=== PATIENT | female | born 1965 | race Caucasian/White ===

== ENCOUNTER 2017-07-26 18:00 | Outpatient (CLI) | payer OTHER | END 2017-07-26 18:01 | disposition home or self-care (01) | LOC: SLEEPLAB 18:00 | PROVIDERS: ATTEND Family Medicine | DX: G47.33 Obstructive sleep apnea (adult) (pediatric) (principal); E11.9 Type 2 diabetes mellitus without complications; F41.9 Anxiety disorder, unspecified; K21.9 Gastro-esophageal reflux disease without esophagitis; E66.9 Obesity, unspecified; I10 Essential (primary) hypertension; R06.83 Snoring; R09.02 Hypoxemia | CPT/HCPCS: 95806 ==

== ENCOUNTER 2017-08-16 07:23 | Emergency (ER) | payer OTHER ==
--- NOTE | 2017-08-16 08:50 | RAD ---
RIGHT ANKLE 3 VIEWS: Date: 08/16/17 HISTORY: Tripped and fell with ankle pain. FINDINGS: There is soft tissue swelling adjacent to the lateral malleolus. Small corticated density adjacent to the tip of the fibula is felt to be on the basis of an older injury, although it was not seen on a 2 011 exam. There appears to be some minimal osteophytic change of the adjacent talus. No joint effusio n is seen. IMPRESSION: Small avulsed bony density from the tip of the fibula. I would favor that this is related to an older injury, although there is soft tissue swelling in this area. POS: [facility]
--- NOTE | 2017-08-16 08:53 | RAD ---
LEFT FOOT 3 VIEWS: Date: 08/16/17 HISTORY: Tripped and fell. Pain on top of left foot. FINDINGS: There are some minimal arthritic changes of the first metatarsophalangeal joint. There is a calcaneal spur at the insertion of the plantar fascia. There are no signs of fracture or dislocation. IMPRESSION: No evidence of fracture. POS: [facility]
== END 2017-08-16 08:52 | disposition home or self-care (01) ==
LOC: ERS 07:23
DX: S93.502A Unspecified sprain of left great toe, initial encounter (principal); M25.471 Effusion, right ankle; E66.9 Obesity, unspecified; K21.9 Gastro-esophageal reflux disease without esophagitis; E78.5 Hyperlipidemia, unspecified; E11.9 Type 2 diabetes mellitus without complications; F32.9 Major depressive disorder, single episode, unspecified; Z87.891 Personal history of nicotine dependence; Z79.82 Long term (current) use of aspirin; Z79.4 Long term (current) use of insulin; Z79.51 Long term (current) use of inhaled steroids; Z79.899 Other long term (current) drug therapy; W17.89XA Other fall from one level to another, initial encounter
CPT/HCPCS: 29515

== ENCOUNTER 2017-09-20 17:03 | Outpatient (CLI) | payer OTHER ==
[2017-09-20 17:49] LABS: #Eosinphils 0.4 thou/uL (0.0-0.7); #Lymphocytes 2.8 thou/uL (1.20-3.40); #Monocytes 0.5 thou/uL (0.11-0.59); #Neutrophils 3.6 thou/uL (1.40-6.50); %Basophils 0.6 % (0.0-1.0); %Eosinophils 5.6 % (0.0-10.0); %Lymphocytes 38.3 % (21.0-51.0); %Neutrophils 48.5 % (42.0-75.0); Hemoglobin 12.2 g/dL (12.0-16.0); Mean Corpuscular HGB CONC 33.5 g/dL (32.0-36.0); Mean Corpuscular Hemoglobin 31.4 pg (27.0-31.0); Mean Corpuscular Volume 93.6 fl (81.0-99.0); Mean Platelet Volume 7.7 fL (7.4-10.4); Platelet Count 260 thou/uL (130-400); RBC Distribution Width 13.8 % (11.5-14.5); White Blood Cell (WBC) Count 7.4 thou/uL (4.8-10.8)
[2017-09-20 18:13] LABS: ALT (SGPT) 17 U/L (8-55); AST (SGOT) 17 U/L (5-34); Albumin 4.1 g/dL (3.5-5.0); Alkaline Phosphatase 83 U/L (40-150); Anion Gap 9 mmol/L (10-20); BUN (Urea Nitrogen) 20 mg/dL (9.8-20.1); Bilirubin, Total 0.2 mg/dL (0.2-1.2); Calc. Creatinine Clearance 0 mL/min (70-130); Calcium 8.8 mg/dL (7.8-10.44); Carbon Dioxide 28 mmol/L (22-29); Chloride 105 mmol/L (98-107); Estimated GFR-MDRD 70; Globulin 2.8 g/dL (2.4-3.5); Glucose 133 mg/dL (70-105); Potassium 4.8 mmol/L (3.5-5.1); Protein, Total 6.9 g/dL (6.0-8.3); Sodium 137 mmol/L (136-145)
--- NOTE | 2017-09-21 23:48 | EKG ---
Test Reason : Blood Pressure : / mmHG Vent. Rate : 072 BPM Atrial Rate : 072 BPM P-R Int : 128 ms QRS Dur : 090 ms QT Int : 414 ms P-R-T Axes : 063 047 046 degrees QTc Int : 453 ms Normal sinus rhythm Normal ECG When compared with ECG of 16-FEB-2014 09:53, No significant change was found Confirmed by FRANCES MUELLER, DR. Bray (4) on 09/21/2017 11:48:07 PM Referred By: WALTER Confirmed By:DR. Katarina DANIELS MD
== END 2017-09-20 17:04 | disposition home or self-care (01) ==
LOC: LABBT 17:03
PROVIDERS: ATTEND Surgery
DX: Z01.818 Encounter for other preprocedural examination (principal); K64.2 Third degree hemorrhoids
CPT/HCPCS: 80053; 85025; 93005; 93010

== ENCOUNTER 2017-09-24 07:43 | Day surgery (SDC) | payer OTHER ==
[2017-09-20 17:05] VITALS: BMI 36.8
[2017-09-24] MEDS ORDERED: Bupivacaine/Epinephrine 0.25% 30 ML VIAL ONE (08:14)
[2017-09-24] MEDS ORDERED: Lidocaine 2% 10 ML INJ ONE (08:14)
[2017-09-24] MEDS ORDERED: Fentanyl 100 MCG/2 ML VIAL ONE (09:38)
[2017-09-24] MEDS ORDERED: cefOXitin 2 GM VIAL ONE (09:44)
[2017-09-24] MEDS ORDERED: Sodium Chloride 0.9% 100 ML ONE (09:44)
--- NOTE | 2017-09-24 10:43 | OP ---
DATE OF PROCEDURE: 09/24/2017 PREOPERATIVE DIAGNOSIS: Grade III hemorrhoids. SURGEON: Aneudy Julio M.D. PROCEDURE PERFORMED: Hemorrhoidectomy. INDICATIONS: A 52-year-old female who had an external skin tag that was causing a lot of difficulty with hygiene. FINDINGS: She had a moderate sized external grade III hemorrhoid as well as posterior she had a hype rtrophied anal papillae that appeared to be prolapsing as well. This was excised. PROCEDURE IN DETAIL: After informed consent was obtained, the patient was taken the operating room. She had undergone a mechanical bowel prep at home. She was given general endotracheal anesthesia. She was placed in lithotomy position. Perianal region was prepped and draped in the usual fashion. Local anesthesia infiltrated subcutaneously and deep as a four quadrant anal block. The bivalve anal retractor was inserted. A fairly significant hypertrophied anal papillae posterior was found. This was excised to include the internal hemorrhoid with the LigaSure, then the external tag anteriorly w as excised with the LigaSure. Hemostasis assured and Gelfoam impregnated with bacitracin inserted wi thin the anal canal. Sterile bandage applied. The patient tolerated the procedure well and was khan sferred to recovery in good condition. Sponge and needle count verified correct x2.
[2017-09-24] MEDS ORDERED: Lidocaine 1% PF 5 ML VIAL ONE (13:56)
[2017-09-24] MEDS ORDERED: Ondansetron HCl/PF 4 MG/2 ML Vial ONE (13:56)
[2017-09-24] MEDS ORDERED: Glycopyrrolate 0.2 MG/ML 5 ML SYRINGE ONE (13:56)
[2017-09-24] MEDS ORDERED: Metoclopramide HCl 10 MG/2 ML VIAL ONE (13:56)
[2017-09-24] MEDS ORDERED: PROPOFOL 200 MG/20 ML VIAL ONE (13:56)
[2017-09-24] MEDS ORDERED: Ketorolac Tromethamine 30 MG/ML VIAL ONE (13:56)
== END 2017-09-24 12:27 | disposition home or self-care (01) ==
LOC: SDC 07:43
PROVIDERS: ATTEND Surgery
PROC: 06BY0ZC Excision of Hemorrhoidal Plexus, Open Approach (ICD-10-PCS; principal; 2017-09-24)
DX: K64.2 Third degree hemorrhoids (principal); K64.8 Other hemorrhoids; K64.4 Residual hemorrhoidal skin tags; Z79.82 Long term (current) use of aspirin; Z79.4 Long term (current) use of insulin; Z79.899 Other long term (current) drug therapy
CPT/HCPCS: 36416; 88304; J0694; J1885; J2001; J2405; J2704; J2765; J3010; J7050

== ENCOUNTER 2018-06-20 15:48 | Outpatient (CLI) | payer BC | END 2018-06-20 15:49 | disposition home or self-care (01) | LOC: BICMAMMO 15:48 | PROVIDERS: ATTEND Obstetrics & Gynecology | DX: Z12.31 Encounter for screening mammogram for malignant neoplasm of breast (principal) | CPT/HCPCS: 77063; 77067 ==

== ENCOUNTER 2019-09-11 05:53 | Outpatient (CLI) | payer BC, OTHER ==
[2019-09-11 10:44] LABS: #Basophils 0.1 thou/uL (0.0-0.2); #Eosinphils 0.3 thou/uL (0.0-0.7); #Lymphocytes 2.4 thou/uL (1.20-3.40); #Monocytes 0.4 thou/uL (0.11-0.59); #Neutrophils 3.6 thou/uL (1.40-6.50); %Eosinophils 4.7 % (0.0-10.0); %Lymphocytes 35.6 % (21.0-51.0); %Monocytes 5.7 % (0.0-10.0); Hemoglobin 12.9 g/dL (12.0-16.0); Mean Corpuscular HGB CONC 33.1 g/dL (32.0-36.0); Mean Corpuscular Hemoglobin 33.1 pg (27.0-31.0); Mean Platelet Volume 8.1 fL (7.4-10.4); Platelet Count 263 thou/uL (130-400); RBC Distribution Width 11.6 % (11.5-14.5); White Blood Cell (WBC) Count 6.8 thou/uL (4.8-10.8)
[2019-09-11 10:51] LABS: Bacteria/HPF None Seen HPF (None Seen); Bilirubin Negative (Negative); Blood, Urine Negative (Negative); Clarity Clear (Clear); Glucose, Urine (Dipstick) Greater than 1000 mg/dL (Negative); Leukocyte Negative Leu/uL (Negative); Nitrite Negative (Negative); Protein, Urine (Dipstick) Negative (Neg-Trace); RBC/HPF 0-3 HPF (0-3); Squamous Epithelial 0-3 HPF (0-3); Urobilinogen Normal mg/dL (Less than 2); WBC/HPF 0-3 HPF (0-3)
[2019-09-11 10:56] LABS: Anion Gap 16 mmol/L (10-20); BUN (Urea Nitrogen) 11 mg/dL (9.8-20.1); Calc. Creatinine Clearance 0 mL/min (70-130); Calcium 9.4 mg/dL (7.8-10.44); Carbon Dioxide 26 mmol/L (22-29); Chloride 100 mmol/L (98-107); Estimated GFR-MDRD 63; Glucose 127 mg/dL (70-105); Potassium 4.3 mmol/L (3.5-5.1); Sodium 138 mmol/L (136-145)
--- NOTE | 2019-09-11 16:12 | EKG ---
Test Reason : Blood Pressure : / mmHG Vent. Rate : 097 BPM Atrial Rate : 097 BPM P-R Int : 116 ms QRS Dur : 084 ms QT Int : 366 ms P-R-T Axes : 068 054 061 degrees QTc Int : 464 ms Normal sinus rhythm Normal ECG When compared with ECG of 20-SEP-2017 17:37, No significant change was found Confirmed by FRANCES MUELLER, DR. Bray (4) on 09/11/2019 4:11:44 PM Referred By: NEVA Confirmed By:DR. Katarina DANIELS MD
[2019-09-11 18:12] LABS: SARS-CoV-2 MS2 Positive; SARS-CoV-2 N Gene Negative; SARS-CoV-2 S Gene Negative; SARS-CoV-2 orf1ab Negative
== END 2019-09-11 05:54 | disposition home or self-care (01) ==
LOC: LABBT 05:53
PROVIDERS: ATTEND Orthopaedic Surgery
DX: Z01.818 Encounter for other preprocedural examination (principal); Z11.59 Encounter for screening for other viral diseases; G56.01 Carpal tunnel syndrome, right upper limb
CPT/HCPCS: 80048; 81001; 85025; 87635; 93005; 93010; U0003

== ENCOUNTER 2019-09-14 07:19 | Day surgery (SDC) | payer BC ==
[2019-09-11 09:21] VITALS: BMI 34.5
[2019-09-14] MEDS ORDERED: Lidocaine 1% w/Epinephrine 1:100K 20 ML VIAL ONE (09:47)
[2019-09-14] MEDS ORDERED: Fentanyl 100 MCG/2 ML VIAL ONE (09:50)
--- NOTE | 2019-09-14 11:21 | OP ---
DATE OF PROCEDURE: 09/14/2019 PREOPERATIVE DIAGNOSIS: Right carpal tunnel syndrome. POSTOPERATIVE DIAGNOSIS: Right carpal tunnel syndrome. PROCEDURE PERFORMED: Open carpal tunnel release. CUSTOM SHOEMAKER: None. ANESTHESIA: Dr. Manning. The patient received LMA with 5 mL of 1% lidocaine. ESTIMATED BLOOD LOSS: Less than 10 mL. TOURNIQUET TIME: 4 minutes. ANTIBIOTICS: Ancef 2 g. COMPLICATIONS: None. HISTORY OF PRESENT ILLNESS: Ms. Montero is a 54-year-old female, presented with right carpal tunnel symptoms. She failed conservative measures and desired open release. I discussed with the patient risks and benefits of surgery including pain, scar, bleeding, infection, damage to vital structures, decreased range of motion and strength, continued pain despite surgical intervention, damage to nerve, loss of life or limb. The patient understood the risks and benefits of procedure and likes to proceed. DESCRIPTION OF PROCEDURE: Time-out was performed designating the patient's right upper extremity as the operative site based on site, consents, and marking. After time-out, the patient's right upper extremity was prepped and draped in sterile fashion. Tourniquet was brought up and left for 4 minutes. Incision was made proximal to Roth's cardinal line, down to flexor crease, down to skin. Blunt dissection was carried down to the palmar fascia that was transected inline. I placed a hemostat under the patient's palmaris brevis and transverse carpal ligament to protect the nerve, dissecting sharply down proximally, used a blunt tip scissors to dissect ensure TCL was completely released. We washed, let the tourniquet down, and controlled bleeding, closed with 4-0 nylon. I had injected a wheal inline with the incision 1%lidocaine with epinephrine 5 mL, placed soft tissue dressing in the patient's hand. The patient will be discharged to home with hydrocodone 5/325 for pain. The patient will follow up with me in about 10 to 12 days for suture removal. She will remove the dressing in 2 to 3 days. Placed a dressing with a Velcro wrist splint on top. Job ID: [id number] MTDD
[2019-09-14] MEDS ORDERED: Lidocaine 1% PF 5 ML VIAL ONE (13:31)
[2019-09-14] MEDS ORDERED: PHENYLEPHRINE-NS 100 MCG/ML 10 ML SYRINGE ONE (13:31)
[2019-09-14] MEDS ORDERED: PROPOFOL 200 MG/20 ML VIAL ONE (13:31)
[2019-09-14] MEDS ORDERED: Ondansetron PF 4 MG/2 ML Vial ONE (13:31)
[2019-09-14] MEDS ORDERED: Dexamethasone 20 MG/5 ML VIAL ONE (13:31)
[2019-09-14] MEDS ORDERED: Ketorolac Tromethamine 30 MG/ML VIAL ONE (13:31)
--- NOTE | 2019-09-14 14:06 | HP ---
HISTORY OF PRESENT ILLNESS: Ms. 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 The patient states she has numbness all time. The pain can be severe. Pain began 5 years ago. She has positive nerve conduction studies. The pain awakes her at night. 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 PAST SURGICAL HISTORY: Plantar fasciitis, right breast biopsy, hemorrhoidectomy. ALLERGIES: INCLUDE NO KNOWN DRUG ALLERGIES. MEDICATIONS: 1. Amitriptyline. 2. Atorvastatin. 3. Farxiga. 4. Dexilant. 5. Tiffanie. 6. Fluoxetine. 7. Hydrochlorothiazide. 8. Levemir. 9. Lisinopril. 10. Multivitamin. 11. Janumet. 12. Zolpidem. 13. Prozac. SOCIAL HISTORY: The patient is , lives with her spouse. She has occasional alcohol. Nonsmoker. Caffeine positive. PHYSICAL EXAMINATION: GENERAL: Alert and oriented female, in no acute distress, resting in bed. EXTREMITIES: Right upper extremity, the patient has positive Tinel's and Phalen 's, positive nerve conduction, brisk cap refill, decreased sensation in median nerve distribution. ASSESSMENT: Right carpal tunnel syndrome. PLAN: The patient will be taken back for open carpal tunnel release. I discussed risks and benefits of surgery, damage to vital structures, nerves, arteries, tendons, decreased range of motion and strength, continued pain. The patient understood the risks and benefits and elected to proceed. The patient will be taken back to surgery once Anesthesia has cleared her and discussed care. She will be sent home today with pain medications, dressings to be taken off in 48 hours. Job ID: [id number] [facility]
== END 2019-09-14 14:03 | disposition home or self-care (01) ==
LOC: SDC 07:19
PROVIDERS: ATTEND Orthopaedic Surgery
PROC: 01N50ZZ Release Median Nerve, Open Approach (ICD-10-PCS; principal; 2019-09-14)
DX: G56.01 Carpal tunnel syndrome, right upper limb (principal); E11.9 Type 2 diabetes mellitus without complications; E78.5 Hyperlipidemia, unspecified; I10 Essential (primary) hypertension; F32.9 Major depressive disorder, single episode, unspecified; E66.9 Obesity, unspecified; Z68.34 Body mass index [BMI] 34.0-34.9, adult; Z79.4 Long term (current) use of insulin; Z79.899 Other long term (current) drug therapy
CPT/HCPCS: J0690; J1100; J1885; J2001; J2405; J2704; J3010

== ENCOUNTER 2020-01-26 08:11 | Outpatient (CLI) | payer BC ==
--- NOTE | 2020-01-26 08:35 | BD ---
EXAM: Bone densitometry using DEXA HISTORY: 54 yo female. Screening for postmenopausal osteoporosis FINDINGS: L1--bone mineral density 0.865 g/sq cm; T score -1.1 ; Z score -0.1 L2--bone mineral density 0.978 g/sq cm; T score -0.5 ; Z score 0.7 L3--bone mineral density 1.013 g/sq cm; T score -0.6 ; Z score 0.6 L4--bone mineral density 1.021 g/sq cm; T score -0.4 ; Z score 0.9 Total L1-L4--bone mineral density 0.975 g/sq cm; T score -0.7 ; Z score 0.5 Left femoral neck--bone mineral density0.677; T score -1.6 ; Z score -0.4 Total proximal left femur--bone mineral density 0.978; T score 0.3 ; Z score 1.1 The 10 year fracture risk for a major osteoporotic fracture is 13% and for a hip fracture is 0.5%. IMPRESSION: Osteopenia
== END 2020-01-26 08:12 | disposition home or self-care (01) ==
LOC: BICMAMMO 08:11
PROVIDERS: ATTEND Advanced Practice Midwife
DX: Z13.820 Encounter for screening for osteoporosis (principal); M85.89 Other specified disorders of bone density and structure, multiple sites
CPT/HCPCS: 77080

== ENCOUNTER 2021-06-23 16:30 | Outpatient (CLI) | payer BC | END 2021-06-23 16:31 | disposition home or self-care (01) | LOC: SLEEPLAB 16:30 | PROVIDERS: ATTEND Family Medicine | DX: G47.33 Obstructive sleep apnea (adult) (pediatric) (principal); R53.83 Other fatigue; R09.89 Other specified symptoms and signs involving the circulatory and respiratory systems; G31.84 Mild cognitive impairment of uncertain or unknown etiology; K21.9 Gastro-esophageal reflux disease without esophagitis; R06.83 Snoring; F41.9 Anxiety disorder, unspecified; I10 Essential (primary) hypertension; E11.9 Type 2 diabetes mellitus without complications; F32.9 Major depressive disorder, single episode, unspecified; R35.1 Nocturia; R51.9 Headache, unspecified; E66.9 Obesity, unspecified; Z68.38 Body mass index [BMI] 38.0-38.9, adult | CPT/HCPCS: 95806 ==

== ENCOUNTER 2022-01-02 12:01 | Outpatient (CLI) | payer BC | END 2022-01-02 12:02 | disposition home or self-care (01) | LOC: BICRAD 12:01 | PROVIDERS: ATTEND Family Medicine | DX: R05.3 Chronic cough (principal) | CPT/HCPCS: 71046 ==

== ENCOUNTER 2024-02-22 12:08 | Outpatient (CLI) | payer BC | END 2024-02-22 12:09 | disposition home or self-care (01) | LOC: BICMAMMO 12:08 | PROVIDERS: ATTEND Family Medicine | DX: Z12.31 Encounter for screening mammogram for malignant neoplasm of breast (principal); N95.1 Menopausal and female climacteric states; M85.89 Other specified disorders of bone density and structure, multiple sites; Z91.89 Other specified personal risk factors, not elsewhere classified | CPT/HCPCS: 77063; 77067; 77080 ==